=== PATIENT | female | born 1990 | race Caucasian/White ===

== ENCOUNTER → 2016-10-14 | Outpatient (CLI) | payer OTHER ==
[~2016-10-14] MED LIST: BUPR100T8 PO; MULT-506 PO; MULTTAB58 PO; NORETAB29 PO
[2016-10-18 17:33] LABS: IGA SERUM 219 mg/dL (81-463); TIS TRANS IGA 1 U/mL (<4)
== END | disposition home or self-care (01) ==
LOC: C.LAB1850 13:57
PROVIDERS: ATTEND Internal Medicine
DX: R19.4 Change in bowel habit (principal)

== ENCOUNTER → 2016-10-29 | Day surgery (SDC) | payer OTHER ==
[2016-10-20 12:51] VITALS: Ht 170.2 cm; Wt 54.5 kg
[~2016-10-29] VITALS: Ht 170.2 cm; Wt 54.5 kg
[~2016-10-29] MED LIST changes: -MULTTAB58 PO; -NORETAB29 PO; +PROPOFOL IV EMULSION 10 MG/ML 20 ML VIAL IV ONE; +SODIUM CHLORIDE 0.9% 500ML 500 ML IV ONE
--- NOTE | 2016-10-29 15:34 | Endo History and Physical ---
History & Physical Date of Service: Oct 29, 2016. Chief Complaint: Change in bowel habits, rectal pain Referring Physician: YANNI Acosta History of Present Illness 26 yo CF who presents for colonoscopy secondary to change in bowel habits and rectal pain. Past Medical History Asthma, Depression Past Surgical History Hx Cardiac Surgery: No Hx Internal Defibrillator: No Hx Pacemaker: No Hx Abdominal Surgery: Yes (TUBAL LIGATION) Hx of Implantable Prosthesis: No Hx Post-Op Nausea and Vomiting: No Hx Cancer Surgery: No Hx Thoracic Surgery: No Hx Orthopedic: No Hx Urinary Tract Surgery: No Family History IBD Social History Smoking Status: Never Smoker Hx Substance Use: No Hx Alcohol Use: Yes (OCCASIONALLY) Allergies Coded Allergies: No Known Allergies (Verified , 10/29/16) Current Medications Reported Home Medications Medications Dose Route/Sig Max Daily Dose Days Date Category Multivitamin (Multivitamins) Tab 1 Tab PO QAM 10/20/16 Reported Wellbutrin Sr (Bupropion HCl) 100 Mg Ertab 100 Mg PO QAM 10/20/16 Reported Vital Signs Weight (Kilograms): 54.55 Height (Feet): 5 Height (Inches): 7 Date Time Temp Pulse Resp B/P Pulse Ox O2 Delivery O2 Flow Rate FiO2 10/29/16 14:18 36.7 93 18 98/70 100 Room Air Physical Exam General Appearance: WD/WN, no apparent distress Respiratory/Chest: Auscultation: breath sounds normal Cardiovascular: Heart Auscultation: RRR Abdomen: Bowel Sounds: normal Inspection & Palpation: soft, non-distended, no tenderness, guarding & rebound Assessment and Plan Assessment: 26 yo CF who presents for colonoscopy secondary to change in bowel habits and rectal pain. Plan: Proceed with colonoscopy.
--- NOTE | 2016-10-29 15:55 | Discharge Instructions ---
Endoscopy Patient Instructions Date / Procedure(s) Performed Oct 29, 2016. Colonoscopy Allergy Information Coded Allergies: No Known Allergies (Verified , 10/29/16) Discharge Date / Findings Oct 29, 2016. Internal hemorrhoids Medication Instructions Stopped Medication(s): MULTIVIT Restart Stopped Medication(s): OK to resume all medications today as prescribed. Reported Home Medications Medications Dose Route/Sig Max Daily Dose Days Date Category Multivitamin (Multivitamins) Tab 1 Tab PO QAM 10/20/16 Reported Wellbutrin Sr (Bupropion HCl) 100 Mg Ertab 100 Mg PO QAM 10/20/16 Reported Provider Instructions Activity Restrictions - No exercising or heavy lifting for 24 hours. - Do not drink alcohol the day of the procedure. - Do not drive a car or operate machinery until the day after the procedure. - Do not make any important decisions or sign important papers in 24 hours after the procedure. Following Day: - Return to full activity which may include returning to work/school. Diet Start your diet with liquids and light foods (jello, soup, juice, toast). Then eat your usual diet if not nauseated. Treatment For Common After Affects For mild abdominal pain, bloating, or excessive gas: - Rest - Eat lightly - Lie on right side Follow-Up Information Follow-up with YANNI Acosta as scheduled Anesthesia Information What You Should Know You have had a procedure that required some medicine to reduce anxiety and discomfort. This treatment is called moderate sedation. After receiving the treatment, you may be sleepy, but you will be able to breathe on your own. The effects of the treatment may last for several hours. Follow these instructions along with Activity/Diet recommendations noted above: * Do NOT do anything where dizziness or clumsiness would be dangerous. * Rest quietly at home today, then you can be up and about tomorrow. * Have a responsible person stay with you the rest of today. * You may have had an I.V. today. If so, you may take the dressing off later today. Recommendations Call your doctor if: * Trouble breathing * Continuous vomiting for more than 24 hours * Temperature above 101 degrees * Severe abdominal pain or bloating * Pain not relieved by pain medicine ordered * There is increased drainage or redness from any incision * A large amount of rectal bleeding greater than 2-3 tablespoons. (If you had a polyp/s removed or have hemorrhoids, a small amount of blood - from the rectum is to be expected.) * You have any unanswered questions or concerns. IN THE EVENT OF A SERIOUS EMERGENCY, GO TO THE NEAREST EMERGENCY ROOM Your discharge instructions were prepared by provider Kodi Silva. Patient Instructions Signature Page Елена Motley Patient (or Guardian) Signature/Date: I have read and understand the instructions given to me by my caregivers. Caregiver/RN/Doctor Signature/Date: The above-named patient and/or guardian has received patient instructions on this date. + Original Patient Signature Page (only) stays with chart. Please make copy for patient.
--- NOTE | 2016-10-29 15:57 | GI REPORT ---
Procedure Date: 10/29/2016 3:14 PM Procedure: Colonoscopy Indications: Change in bowel habits, Rectal pain Medicines: Monitored Anesthesia Care Complications: No immediate complications. Estimated Blood Loss: Estimated blood loss: none. Procedure: Pre-Anesthesia Assessment: - Prior to the procedure, a History and Physical was performed, and patient medications and allergies were reviewed. The patient's tolerance of previous anesthesia was also reviewed. The risks and benefits of the procedure and the sedation options and risks were discussed with the patient. All questions were answered, and informed consent was obtained. Prior Anticoagulants: The patient has taken no previous anticoagulant or antiplatelet agents. ASA Grade Assessment: II - A patient with mild systemic disease. After reviewing the risks and benefits, the patient was deemed in satisfactory condition to undergo the procedure. After I obtained informed consent, the scope was passed under direct vision. Throughout the procedure, the patient's blood pressure, pulse, and oxygen saturations were monitored continuously. The scope was introduced through the anus and advanced to the terminal ileum. The colonoscopy was performed without difficulty. The patient tolerated the procedure well. The quality of the bowel preparation was good. The terminal ileum, ileocecal valve, appendiceal orifice, and rectum were photographed. Findings: Non-bleeding internal hemorrhoids were found during retroflexion. The hemorrhoids were small. The exam was otherwise without abnormality. Impression: - Non-bleeding internal hemorrhoids. - The examination was otherwise normal. - No specimens collected. Recommendation: - Resume previous diet. - Continue present medications. - Repeat colonoscopy at age 48 for surveillance. - Return to primary care physician as previously scheduled. Kodi Silva, 10/29/2016 3:57:27 PM This report has been signed electronically. Note Initiated On: 10/29/2016 3:14 PM I attest to the content of the Intraoperative Record and orders documented therein, exceptions below
[2016-10-29 16:26] VITALS: BP 104/71; PULSE 72; O2SAT 100
--- NOTE | 2016-10-29 17:47 | Anesthesiology Progress Note ---
Anesthesia Post Op Note Date & Time Oct 29, 2016 at 17:46 Vital Signs Pain Intensity: 0 Vital Signs Past 12 Hours Date Time Temp Pulse Resp B/P Pulse Ox O2 Delivery O2 Flow Rate FiO2 10/29/16 16:26 72 16 104/71 100 Room Air 10/29/16 16:11 78 16 95/60 100 Room Air 10/29/16 15:56 102 16 92/62 98 Room Air 10/29/16 14:18 36.7 93 18 98/70 100 Room Air Notes Mental Status: alert / awake / arousable, participated in evaluation Pt Amnestic to Procedure: Yes Nausea / Vomiting: adequately controlled Pain: adequately controlled Airway Patency, RR, SpO2: stable & adequate BP & HR: stable & adequate Hydration State: stable & adequate Anesthetic Complications: no major complications apparent
== END | disposition home or self-care (01) ==
LOC: C.GI 13:44
PROVIDERS: ATTEND Internal Medicine
DX: R19.4 Change in bowel habit (principal); K62.89 Other specified diseases of anus and rectum; K64.8 Other hemorrhoids

== ENCOUNTER → 2017-01-08 | Outpatient (CLI) | payer OTHER ==
[~2017-01-08] MED LIST changes: -PROPOFOL IV EMULSION 10 MG/ML 20 ML VIAL IV ONE; -SODIUM CHLORIDE 0.9% 500ML 500 ML IV ONE
== END | disposition home or self-care (01) ==
LOC: C.PAPS 17:40
PROVIDERS: ATTEND Obstetrics & Gynecology
DX: Z01.419 Encounter for gynecological examination (general) (routine) without abnormal findings (principal)